=== PATIENT | male | born 1995 | race Caucasian/White ===

== ENCOUNTER 2022-08-26 05:49 | Outpatient (REF) | payer OTHER, SELFPAY ==
--- NOTE | ~2022-08-26 | XR_ITS ---
EXAMINATION: XR foot LT min 3V CLINICAL INFORMATION: Reason for Exam M79.672 - Pain in left foot COMPARISON: Foot radiographs 07/01/2022. TECHNIQUE: AP, lateral, and oblique views of the foot FINDINGS: Again seen is a transversely oriented fracture of the base of the fifth metatarsal suggesting a Cervantes fracture with indistinctness of the fracture margins suggesting ongoing healing without ginger bony callus formation. Joint spaces are maintained without significant degenerative change. No joint effusion or soft tissue abnormality. XR/XR foot LT min 3V IMPRESSION: Again seen is a transversely oriented fracture of the base of the fifth metatarsal suggesting a Cervantes fracture with indistinctness of the fracture margins suggesting ongoing healing without ginger bony callus formation.
== END 2022-08-26 05:50 | disposition home or self-care (01) ==
LOC: HO.HOSX 05:49
PROVIDERS: Visit Provider Physician Assistant
DX: S92.352D Displaced fracture of fifth metatarsal bone, left foot, subsequent encounter for fracture with routine healing (principal); X58.XXXD Exposure to other specified factors, subsequent encounter
CPT/HCPCS: 73630; 99202

== ENCOUNTER 2022-09-23 07:00 | Outpatient (RCR) | payer OTHER, SELFPAY | END 2022-12-09 07:54 | disposition home or self-care (01) | LOC: HO.PTWFD 07:00 | PROVIDERS: Visit Provider Physician Assistant | DX: S92.352A Displaced fracture of fifth metatarsal bone, left foot, initial encounter for closed fracture (principal) | CPT/HCPCS: 97110; 97150; 97161; 97535 ==